=== PATIENT | female | born 1955 | race Caucasian/White ===

== ENCOUNTER 2024-05-05 17:58 | Emergency (ER) | payer OTHER, SELFPAY ==
[2024-05-05 18:03] VITALS: BP 155/86; BMI 22.5
[2024-05-05] MEDS: ROXICODONE 5 MG PO (19:40)
[2024-05-05] MEDS: LIDOCAINE 4% PATCH 1 PATCH TOPICAL (19:41)
[2024-05-05] MEDS: TYLENOL 650 MG PO (19:41)
[2024-05-05] MEDS: TORADOL 15 MG IM (20:09)
--- NOTE | 2024-05-05 21:48 | ED.GENMED ---
History of Present Illness
General
Chief Complaint: Musculo-Skeletal Complaint
Source: patient and other (daughter)
Exam Limitations: none
Time Seen by Provider: 05/05/24 18:47
Nursing documentation reviewed up to this point in time: agreed with
History of Present Illness
History of Present Illness:
Patient is a 68-year-old female with past medical history of Takotsubo's cardiomyopathy, negative cardiac catheterization, who presents to the emergency department accompanied by her daughter for evaluation of left shoulder pain that started
yesterday. Patient denies any known injury, trauma, overuse. Patient reports that she did have similar pain in her right shoulder a while ago and had an injection into the joint with improvement. Patient came to the emergency department today
hoping that she can get an injection into the left shoulder. Patient denies that the pain radiates down her arm. Patient denies any numbness, weakness, tingling of the left upper extremity. Patient denies any recent fevers, chills, chest pain,
shortness of breath, abdominal pain, nausea, vomiting, diaphoresis. Patient reports trying to take naproxen yesterday without improvement in her pain. She reports that she also tried taking Tylenol with codeine at home today also without
improvement in her pain.
Past History
Past History
ED Past Medical History: [facility] and Other (RUE DVT s/p catheterization)
ED Past Surgical History: Cardiac (Catheterization)
Social History
Tobacco: Smoker
Alcohol: Occasional
Personal:
Family History
Family History: Negative Diabetes, Hypertension or CAD
Review of Systems
Review of Systems
Allergies reviewed?: Yes
All Other Systems: ROS reviewed and negative except as documented in HPI and ROS
Constitutional: Reports no symptoms
EENT: Reports no symptoms
Respiratory: Reports no symptoms
Cardiac: Reports no symptoms
ABD/GI: Reports no symptoms
: Reports no symptoms
Musculoskeletal: Reports other (left shoulder pain)
Skin: Reports no symptoms
Neurological: Reports no symptoms
Endocrine: Reports no symptoms
Hematologic/Lymphatic: Reports no symptoms
Psychiatric: Reports no symptoms
Phy Exam
General Physical Exam
General Presentation: well appearing and no apparent distress
General Skin: warm and dry
General Habitus: normal
General Mental: alert
General Hydration: appears well hydrated
ENT Exam
ENT Exam: EOMI
Cardiovascular Exam
Cardiovascular Exam: regular rate/rhythm, no edema, no murmur and normal peripheral pulses
Pulmonary Exam
Pulmonary Exam: lungs clear, no respiratory distress, no rales, no crackles, no rhonchi, no stridor, no wheezing and no cough
Gastrointestinal Exam
Gastrointestinal Exam: normal bowel sounds, non tender, soft, no organomegaly, no pulsatile mass and non distended
Neurological Exam
Neurological Exam: alert, oriented x3, no motor deficits and speech normal
Musculoskeletal Exam
Musculoskeletal Exam: other (No deformity, erythema, ecchymosis, swelling to the LUE,ttp to the posterior aspect of the L shoulder, no ttp to the remainder of the LUE, decreased ROM of the left shoulder 2/2 pain, cap refill <2 sec, sensation intact
distally)
Skin Exam
Skin Exam: normal color, warm/dry, no rash and no petechia
Psychiatric Exam
Psychiatric Exam: normal mood/affect
Course
Orders/Labs/Results
Orders:
Orders
05/05/24 18:07
Electrocardiogram (*1) Urgent
Reason for Study: Chest Pain
05/05/24 18:08
EKG- Treatment ONCE
05/05/24 19:03
Acetaminophen [Tylenol] 650 mg PO NOW STA
Ketorolac [Toradol] 15 mg IV NOW STA
Oxycodone [Roxicodone] 5 mg PO NOW STA
05/05/24 19:04
Lidocaine [Lidocaine 4% Patch] 1 patch TOPICAL NOW STA
Apply Lidocaine patch(s) to:: left shoulder
05/05/24 19:48
Ketorolac [Toradol] 15 mg IM NOW STA
Vital Signs
Initial and Last Documented VS:
Initial Vital Signs
Temp Resp BP Pulse Ox
98.3 F 18 155/86 98
05/05/24 18:03 05/05/24 18:03 05/05/24 18:03 05/05/24 18:03
Last Documented Vital Signs
Temp Resp BP Pulse Ox
98.3 F 18 155/86 98
05/05/24 18:03 05/05/24 18:03 05/05/24 18:03 05/05/24 18:03
*Critical Care Note
Total Time (30-74mins, 75-104mins- exclusive of procedures): Not Applicable
Update Note
Update Note:
68-year-old female presents with atraumatic left shoulder pain. Patient denies any radiation of the pain. Patient denies any paresthesias to the left upper extremity. Patient had a similar episode in her right shoulder which required an
injection. Patient is requesting the same today. Patient denies any chest pain or shortness of breath. On arrival, patient is moderately hypertensive but in pain, afebrile. On exam, patient is well-appearing, she is in no acute distress, she has
reproducible tenderness over the posterior aspect of the left shoulder with decreased range of motion of the left shoulder, she is neurovascularly intact. EKG was performed and demonstrates no acute ischemic changes, no evidence of dysrhythmia.
Patient declines an x-ray of the shoulder today which I feel is appropriate given the fact that the patient has not had any known injury or trauma. Will provide the patient with analgesia. Patient states that she will contact orthopedics in the
morning for definitive diagnosis and treatment. Patient stable for discharge with return precautions, she expressed understanding of the plan and agreed.
ED Attending Note
-
Portions of this chart may have been created with voice recognition software.� Occasional wrong word or��sound alike� substitutions may have occurred due to the inherent limitations of voice recognition software.
Discharge Plan
Departure
Patient Disposition: Home (Routine Discharge)
Date of Disposition: 05/05/24
Time of Disposition: 20:03
Patient with high blood pressure during this ER visit?: Yes
Condition: Good
Discharge Problem:
Acute pain of left shoulder
Instructions: Shoulder pain - ED discharge instructions
Prescriptions:
No Action
aspirin 81 MG tablet,delayed release (DR/EC)
81 mg PO DAILY
docosahexaenoic acid-epa 1 CAP capsule
1 cap PO DAILY
Referrals:
Sabas Roldan MD [Active] - Follow up in 2-3 days
NONE,* [Family Provider] -
Carlos Eduardo Dewitt MD [Active] - Follow up in 2-3 days
Activity Restrictions/Additional Instructions:
You were seen in the emergency department for evaluation of left shoulder pain. While you were in the emergency department you declined an x-ray which we feel is appropriate. You were given medication for pain with improvement. It is safe for you
to be discharged home, we recommend close outpatient follow-up with orthopedics for further evaluation and treatment. Please return to the emergency department for severe pain, swelling, numbness, weakness, tingling of the left arm, hand, fingers,
color change of the left upper extremity, or for any other worsening or concerning symptoms.
Interventions
Interventions:
*Risk Screen - Suicide Last Done: 05/05/24 18:03
*Neglect/Abuse Screening Last Done: 05/05/24 20:19
ED- Fall Risk Assessment Last Done: 05/05/24 20:19
*ED COVID-19 Vaccine History Last Done: 05/05/24 18:03
*Nursing Disposition Last Done: 05/05/24 20:19
ED-Musculoskeletal Assessment Last Done: 05/05/24 20:17
Discharge Date and Time
Discharge Date/Time: 05/05/24 20:10
Print Language: MARSHALLESE
== END 2024-05-05 20:10 | disposition home or self-care (01) ==
LOC: EMR 17:58
PROVIDERS: EMERGENCY PHYSICIAN Student in an Organized Health Care Education/Training Program
DX: M25.512 Pain in left shoulder (principal); F17.200 Nicotine dependence, unspecified, uncomplicated; I25.2 Old myocardial infarction; Z86.718 Personal history of other venous thrombosis and embolism
CPT/HCPCS: 96372; 99284; 93005

== ENCOUNTER → 2024-08-21 11:24 | Outpatient (REF) | payer OTHER, SELFPAY | LOC: DHSLP 11:24 | PROVIDERS: ATTENDING PHYSICIAN Internal Medicine Critical Care Medicine; FAMILY PHYSICIAN Internal Medicine | DX: G47.33 Obstructive sleep apnea (adult) (pediatric) (principal) | CPT/HCPCS: 95800 ==

== ENCOUNTER → 2025-01-01 09:21 | Outpatient (REF) | payer MEDICARE, OTHER, SELFPAY | LOC: HWRAD 09:21 | PROVIDERS: ATTENDING PHYSICIAN Nurse Practitioner Adult Health | DX: Z87.891 Personal history of nicotine dependence (principal) | CPT/HCPCS: 71271 ==